=== PATIENT | male | born 1970 | race Caucasian/White ===

== ENCOUNTER 2017-08-29 13:19 | Emergency (ER) | payer BC, OTHER ==
[~2017-08-29] VITALS: Ht 175.3 cm; Wt 88.0 kg
[2017-08-29 14:39] VITALS: BP 106/68
== END 2017-08-29 14:57 | disposition home or self-care (01) ==
LOC: ED 14:00
DX: T58.11XA Toxic effect of carbon monoxide from utility gas, accidental (unintentional), initial encounter (principal); Y92.89 Other specified places as the place of occurrence of the external cause
CPT/HCPCS: 36415; 82375; 99283